=== PATIENT | female | born 2000 | race African-American/Black ===

== ENCOUNTER 2021-04-14 10:42 | Inpatient (IN) ==
[2021-04-14] MEDS ORDERED: ONDANSETRON 4 MG/2 ML VIAL IV PRN (12:46)
[2021-04-14] MEDS ORDERED: MEPERIDINE 50 MG/1 ML VIAL IV PRN (12:46)
[2021-04-14] MEDS ORDERED: BUTORPHANOL 2 MG/ML VIAL IV PRN (12:46)
[2021-04-14] MEDS ORDERED: LACTATED RINGERS 250 ML IV ONE (12:46)
[2021-04-14] MEDS ORDERED: LACTATED RINGERS 500 ML IV PRN (12:46)
[2021-04-14] MEDS ORDERED: LACTATED RINGERS 1,000 ML IV SCH (13:00)
[2021-04-14 13:04] LABS: Basophils % 0.3 % (0.0-0.8); Eosinophils % 0.5 % (0.00-10.9); Hematocrit 36.7 VOL% (35.7-47.0); Hemoglobin 11.8 GM/DL (12.0-16.0); Immature Granulocytes % 1.3 %; Lymphocytes # 1.9 10*3/uL (1.4-4.0); Lymphocytes % 26.1 % (21.3-54.2); Mean Corpuscular HGB Conc 32.2 GM/DL (32-36); Mean Corpuscular Volume 90.6 FL (87-102); Mean Platelet Volume 10.9 FL (9.6-12.0); Monocytes % 6.2 % (1.7-12.7); Neutrophils % 65.6 % (38.7-73.9); Platelet Count 208 T/CUMM (130-400); Red Blood Count 4.05 MC/CUMM (3.8-5.5); Red Cell Distribution Width 13.4 % (9.3-17.3); White Blood Count 7.4 T/CUMM (4-12)
[2021-04-14] MEDS ORDERED: OXYTOCIN/LR 20 UNIT/1,000 ML BAG IV SCH (14:00)
[2021-04-14] MEDS ORDERED: TRANEXAMIC ACID 1,000 MG/10 ML VIAL ONE (18:12)
[2021-04-14] MEDS ORDERED: OXYTOCIN/LR 20 UNIT/1,000 ML BAG IV ONE ×2 (18:12→23:53)
[2021-04-14] MEDS ORDERED: SODIUM CHLORIDE 0.9% 100 ML IV ONE (18:12)
[2021-04-14] MEDS ORDERED: miSOPROStoL 200 MCG TABLET ONE (18:12)
[2021-04-14] MEDS ORDERED: METHYLERGONOVINE 0.2 MG/1 ML AMP ONE (18:13)
[2021-04-14] MEDS ORDERED: CARBOPROST TROMETHAMINE 250 MCG/ML AMP IM ONE (18:13)
[2021-04-14] MEDS ORDERED: LIDOCAINE 1% 50 ML VIAL ONE (19:29)
[2021-04-14 20:17] LABS: Cord Arterial Blood HCO3 18.6 MMOL/L
[2021-04-14 20:20] LABS: Cord Venous Blood HCO3 20.5 MMOL/L; Cord Venous Blood PCO2 39.9 MMHG; Cord Venous Blood PO2 29.2
[2021-04-14] MEDS ORDERED: ACETAMINOPHEN 325 MG TABLET PO PRN (23:53)
[2021-04-14] MEDS ORDERED: MEASLES/MUMPS/RUBELLA VACCINE 0.5 ML VIAL SUBCUT ONE (23:53)
[2021-04-14] MEDS ORDERED: DIPH/TET/ACEL PERT BOOSTER VACCINE 0.5 ML VIAL IM ONE (23:53)
[2021-04-14] MEDS ORDERED: oxyCODONE/ACETAMINOPHEN 5-325 MG TABLET PO PRN ×2 (23:53)
[2021-04-14] MEDS ORDERED: RHO(D) IMMUNE GLOBULIN 300 MCG SYRINGE IM ONE (23:53)
[2021-04-14] MEDS ORDERED: LANOLIN 50% CREAM 0.3 OZ TUBE TOP PRN (23:53)
[2021-04-14] MEDS ORDERED: BISACODYL 10 MG SUPP RECTAL PRN (23:53)
[2021-04-14] MEDS ORDERED: HYDROCORTISONE 2.5% RECTAL CREAM 30 GM TUBE TOP PRN (23:53)
[2021-04-14] MEDS ORDERED: BENZOCAINE 20%/MENTHOL 0.5% SPRAY 56 GM CAN TOP PRN (23:53)
[2021-04-14] MEDS ORDERED: WITCH HAZEL PADS 100/JAR TOP PRN (23:53)
[2021-04-15] MEDS: IBUPROFEN 800 MG TABLET PO PRN ×3 (02:00→16:13)
[2021-04-15 06:32] LABS: Basophils % 0.2 % (0.0-0.8); Eosinophils % 0.2 % (0.00-10.9); Hematocrit 30.7 VOL% (35.7-47.0); Immature Granulocytes % 0.5 %; Immature Granulocytes Absolute 0.07 #; Lymphocytes # 2.6 10*3/uL (1.4-4.0); Lymphocytes % 19.3 % (21.3-54.2); Mean Corpuscular HGB Conc 32.6 GM/DL (32-36); Mean Corpuscular Volume 89.2 FL (87-102); Mean Platelet Volume 11.6 FL (9.6-12.0); Monocytes % 6.3 % (1.7-12.7); Neutrophils % 73.5 % (38.7-73.9); Platelet Count 192 T/CUMM (130-400); Red Blood Count 3.44 MC/CUMM (3.8-5.5); Red Cell Distribution Width 13.2 % (9.3-17.3); White Blood Count 13.4 T/CUMM (4-12)
[2021-04-15] MEDS: DOCUSATE SODIUM 100 MG CAPSULE PO SCH ×2 (10:10→20:17)
[2021-04-16] MEDS: IBUPROFEN 800 MG TABLET PO PRN ×2 (03:12→10:27)
[2021-04-16] MEDS: DOCUSATE SODIUM 100 MG CAPSULE PO SCH (08:21)
[2021-04-16 08:40] VITALS: BP 122/71
[2021-04-16] MEDS ORDERED: INFLUENZA VIRUS VACCINE 0.5 ML SYRINGE IM ONE (09:32)
== END 2021-04-16 12:40 | disposition home or self-care (01) | DRG 807 ==
LOC: N.LDOUT 10:42 → N.LD 10:44 → N.OB 22:35
PROVIDERS: ADMIT Obstetrics & Gynecology; ATTEND Obstetrics & Gynecology

== ENCOUNTER 2022-05-25 13:08 | Inpatient (IN) ==
[2022-05-25] MEDS ORDERED: CARBOPROST TROMETHAMINE 250 MCG/ML AMP IM PRN (14:37)
[2022-05-25] MEDS ORDERED: BUTORPHANOL 2 MG/ML VIAL IV PRN (14:37)
[2022-05-25] MEDS ORDERED: MEPERIDINE 50 MG/1 ML VIAL IV PRN (14:37)
[2022-05-25] MEDS ORDERED: TRANEXAMIC ACID 1,000 MG in SODIUM CHLORIDE 0.9% 100 ML IV PRN (14:37)
[2022-05-25] MEDS ORDERED: ONDANSETRON 4 MG/2 ML VIAL IV PRN (14:37)
[2022-05-25] MEDS ORDERED: OXYTOCIN/LR 20 UNIT/1,000 ML BAG IV ONE ×2 (14:37→20:11)
[2022-05-25] MEDS ORDERED: METHYLERGONOVINE 0.2 MG/1 ML AMP IM PRN (14:37)
[2022-05-25] MEDS ORDERED: miSOPROStoL 200 MCG TABLET RECTAL PRN (14:37)
[2022-05-25] MEDS ORDERED: OXYTOCIN/LR 20 UNIT/1,000 ML BAG IV SCH (15:00)
[2022-05-25 15:06] LABS: Basophils % 0.3 % (0.0-0.8); Eosinophils # 0.1 10*3/uL (0.0-0.87); Hematocrit 34.8 VOL% (35.7-47.0); Hemoglobin 10.7 GM/DL (12.0-16.0); Immature Granulocytes % 0.7 %; Immature Granulocytes Absolute 0.05 #; Lymphocytes % 28.4 % (21.3-54.2); Mean Corpuscular HGB Conc 30.7 GM/DL (32-36); Mean Corpuscular Volume 90.4 FL (87-102); Mean Platelet Volume 9.9 FL (9.6-12.0); Monocytes # 0.4 10*3/uL (0.11-0.8); Monocytes % 5.8 % (1.7-12.7); Neutrophils % 63.8 % (38.7-73.9); Platelet Count 212 T/CUMM (130-400); Red Blood Count 3.85 MC/CUMM (3.8-5.5); Red Cell Distribution Width 15.4 % (9.3-17.3); White Blood Count 6.9 T/CUMM (4-12)
[2022-05-25 15:25] LABS: Albumin 2.8 G/DL (3.4-5.0); Bilirubin,Total 0.8 MG/DL (0.20-1.00); Calcium 8.8 MG/DL (8.5-10.1); Osmolality,Calculated 275.5 MOS/KG (273-304); Potassium 3.5 MMOL/L (3.5-5.1); Total Protein 6.7 G/DL (6.4-8.2)
[2022-05-25] MEDS ORDERED: LACTATED RINGERS 1,000 ML IV SCH (15:30)
[2022-05-25] MEDS ORDERED: SODIUM CHLORIDE 0.9% 0 ML IV ONE (18:04)
[2022-05-25] MEDS ORDERED: TRANEXAMIC ACID 1,000 MG/10 ML VIAL ONE (18:04)
[2022-05-25] MEDS ORDERED: CARBOPROST TROMETHAMINE 250 MCG/ML AMP IM ONE (18:04)
[2022-05-25] MEDS ORDERED: miSOPROStoL 200 MCG TABLET ONE (18:04)
[2022-05-25] MEDS ORDERED: METHYLERGONOVINE 0.2 MG/1 ML AMP ONE (18:04)
[2022-05-25 18:32] LABS: Cord Venous Blood PCO2 40.8 MMHG; Cord Venous Blood PO2 30.3
[2022-05-25] MEDS ORDERED: oxyCODONE/ACETAMINOPHEN 5-325 MG TABLET PO PRN ×2 (20:11)
[2022-05-25] MEDS ORDERED: LANOLIN 50% CREAM 0.3 OZ TUBE TOP PRN (20:11)
[2022-05-25] MEDS ORDERED: RHO(D) IMMUNE GLOBULIN 300 MCG SYRINGE IM ONE (20:11)
[2022-05-25] MEDS ORDERED: BENZOCAINE 20%/MENTHOL 0.5% SPRAY 56 GM CAN TOP PRN (20:11)
[2022-05-25] MEDS ORDERED: DIPH/TET/ACEL PERT BOOSTER VACCINE 0.5 ML VIAL IM ONE (20:11)
[2022-05-25] MEDS ORDERED: IBUPROFEN 800 MG TABLET PO PRN (20:11)
[2022-05-25] MEDS ORDERED: ACETAMINOPHEN 325 MG TABLET PO PRN (20:11)
[2022-05-25] MEDS ORDERED: HYDROCORTISONE 2.5% RECTAL CREAM 30 GM TUBE TOP PRN (20:11)
[2022-05-25] MEDS ORDERED: WITCH HAZEL PADS 100/JAR TOP PRN (20:11)
[2022-05-25] MEDS ORDERED: BISACODYL 10 MG SUPP RECTAL PRN (20:11)
[2022-05-25] MEDS ORDERED: MEASLES/MUMPS/RUBELLA VACCINE 0.5 ML VIAL SUBCUT ONE (20:11)
[2022-05-25] MEDS: DOCUSATE SODIUM 100 MG CAPSULE PO SCH (21:11)
[2022-05-26 05:31] LABS: Basophils % 0.3 % (0.0-0.8); Eosinophils # 0.1 10*3/uL (0.0-0.87); Eosinophils % 0.9 % (0.00-10.9); Hematocrit 32.4 VOL% (35.7-47.0); Immature Granulocytes % 0.6 %; Immature Granulocytes Absolute 0.07 #; Lymphocytes % 23.6 % (21.3-54.2); Mean Corpuscular HGB Conc 30.9 GM/DL (32-36); Mean Corpuscular Volume 89.8 FL (87-102); Mean Platelet Volume 10.8 FL (9.6-12.0); Monocytes # 0.7 10*3/uL (0.11-0.8); Monocytes % 5.4 % (1.7-12.7); Neutrophils % 69.2 % (38.7-73.9); Platelet Count 199 T/CUMM (130-400); Red Blood Count 3.61 MC/CUMM (3.8-5.5); Red Cell Distribution Width 15.3 % (9.3-17.3); White Blood Count 12.6 T/CUMM (4-12)
[2022-05-26] MEDS: DOCUSATE SODIUM 100 MG CAPSULE PO SCH ×2 (09:28→21:52)
[2022-05-27] MEDS: DOCUSATE SODIUM 100 MG CAPSULE PO SCH (08:48)
[2022-05-27 09:50] VITALS: BP 108/67
== END 2022-05-27 11:45 | disposition home or self-care (01) | DRG 807 ==
LOC: N.LD 13:08 → N.OB 20:25
PROVIDERS: ADMIT Obstetrics & Gynecology; ATTEND Obstetrics & Gynecology